=== PATIENT | female | born 1945 | race Caucasian/White ===

== ENCOUNTER 2023-07-03 12:46 | Outpatient (OUT) | payer MEDICARE, SELFPAY ==
--- NOTE | 2023-07-03 12:59 | US_ITS ---
[address] [address] Patient Name: BINDU COOPER MRN: [id number] date: 1945 Sex: F Assigned Patient Location: Current Patient Location: Accession/Order Number: [id number] Exam Date: 07/03/2023 13:00 Report Date: 07/04/2023 08:07 At the request of: HENRY AGUIALR Procedure: US carotid duplex BI EXAMINATION: US carotid duplex BI HISTORY: Carotid Stenosis Bilateral I65.23 COMPARISON: No relevant comparison available. TECHNIQUE: Duplex Doppler ultrasound analysis of carotid and vertebral arteries. . Bilateral carotid arterial duplex examination was performed using B-mode, color flow and spectral analysis. Carotid stenosis is reported according to validated velocity parameters, similar to NASCET criteria. FINDINGS: RIGHT CAROTID ARTERY: No visible stenosis or significant plaque. RIGHT VERTEBRAL: Antegrade flow. Subclavian: PSV: 101.2 cm/s EDV: 6.0 cm/s CCA: Prox: PSV: 51.2 cm/s EDV: 12.7 cm/s Mid: PSV: 50.1 cm/s EDV: 13.8 cm/s Distal: PSV: 33.9 cm/s EDV: 11.8 cm/s BULB: PSV: 33.2 cm/s EDV: 7.5 cm/s ICA: Prox: PSV: 56.7 cm/s EDV: 17.5 cm/s Mid: PSV: 74.7 cm/s EDV: 27.6 cm/s Distal: PSV: 72.9 cm/s EDV: 24.9 cm/s ECA: PSV: 66.8 cm/s EDV: 9.2 cm/s VERTEBRAL: PSV: 62.4 cm/s EDV: 16.2 cm/s ICA/CCA ratio: PSV: 2.2 EDV: 2.3 LEFT CAROTID ARTERY: Minimal atherosclerotic plaque within proximal and mid ICA; no significant stenosis. LEFT VERTEBRAL: Antegrade flow. Subclavian: PSV: 120.0 cm/s EDV: 11.6 cm/s CCA: Prox: PSV: 39.1 cm/s EDV: 12.1 cm/s Mid: PSV: 52.2 cm/s EDV: 15.6 cm/s Distal: PSV: 35.7 cm/s EDV: 11.2 cm/s BULB: PSV: 41.8 cm/s EDV: 12.1 cm/s ICA: Prox: PSV: 131.8 cm/s EDV: 26.8 cm/s Mid: PSV: 89.8 cm/s EDV: 26.8 cm/s Distal: PSV: 131.7 cm/s EDV: 36.5 cm/s ECA: PSV: 61.6 cm/s EDV: 8.4 cm/s VERTEBRAL: PSV: 56.4 cm/s EDV: 14.5 cm/s ICA/CCA ratio: PSV: 3.7 EDV: 2.4 US/US carotid duplex BI IMPRESSION: 1. 0-49% flow stenosis within the right and left carotid arteries. 2. Minimal atherosclerotic disease. Electronically authenticated by: PATY DE OLIVEIRA Date: 07/04/2023 08:07
--- NOTE | 2023-07-03 14:35 | CA_ITS ---
Patient Name: BINDU COOPER MR#: [id number] : 1945 Exam Date: 07/03/2023 Ordering Doctor: DR HENRY MOROCHO M.D. ECHOCARDIOGRAM REPORT PROCEDURE: CA ECHO DOPPLER COMPLETE INDICATIONS: CAD, stent, smoker, hypertension COMPARISON: None. DESCRIPTION: COMPLETE ECHOCARDIOGRAM Real-time transthoracic echocardiography with 2D, M-mode, spectral and color flow Doppler performed. QUALITY: Technical quality was good. 66 , 145# , BSA 1.71 m2 LEFT VENTRICLE: Normal chamber size. Mild concentric left ventricular hypertrophy. Normal systolic function. LV EF: Normal left ventricular ejection fraction, (55-60%). DIASTOLIC: Normal diastolic function. ATRIAL SEPTUM: Visually appears intact. LEFT ATRIUM: Normal chamber size. RIGHT ATRIUM: Normal chamber size. RIGHT VENTRICLE: Normal chamber size. Normal right ventricular systolic function. TRICUSPID VALVE: Normal mobility and thickness. No stenosis with mild regurgitation. No evidence of pulmonary hypertension. RVSP 25 mmHg MITRAL VALVE: Normal mobility and thickness. No evidence of mitral valve stenosis. Mild mitral annular calcification. No mitral regurgitation. AORTIC VALVE: Normal trileaflet appearance. Mildly calcified aortic valve. Normal leaflet mobility. No evidence of aortic valve stenosis. No aortic regurgitation. AORTIC ROOT: Normal diameter and appearance. PULMONIC VALVE: Normal thickness and mobility. No stenosis. Trivial regurgitation. PERICARDIUM: No evidence of pericardial effusion. IVC: Collapses with inspirations. PLEURA: CONCLUSION: 1. Mild concentric left ventricular hypertrophy with normal systolic function. LVEF is 55 to 60%. 2. Normal right ventricular size and systolic function. 3. Normal diastolic function. 4. No significant valvular dysfunction. 5. Normal right-sided pressures. Adult Echocardiography Procedure Report Left Ventricle LVEDD (3.7 - 5.6 cm): 4.14 cm LVESD (2.2 - 4.0 cm): 3.21 cm LVIVS thickness (0.6 - 1.2 cm): 1.14 cm LVPW thickness (0.5 - 1.0 cm): 1.18 cm LVOT Max Gradient: 2 mm[Hg] Peak Velocity (LVOT): 77.50 cm/s Mean Velocity (LVOT): 52.70 cm/s LVOT Diameter 2.20 cm Left Ventricular Ejection Fraction: 55-60 % Left Atrium LA Volume Index (2D A2C): 02721 mm3 Left Atrium Systolic Dimension: 3.10 cm Mitral Valve MV E to A Ratio: 0.90 Mitral Valve A-Wave Peak Velocity: 69.10 cm/s Mitral Valve E-Wave Peak Velocity: 59.20 cm/s Right Ventricle Aorta AO Root Diam: 3.30 cm Aortic Valve AoV Area (Peak Jose): 2.20 cm2 AoV Area (VTI): 2.48 cm2 Peak Velocity(Antegrade Flow): 134.00 cm/s Peak Gradient(Antegrade Flow): 7 mm[Hg] Mean Velocity(Antegrade Flow): 84.30 cm/s Mean Gradient(Antegrade Flow): 3 mm[Hg] Velocity Time Integral: 30.70 cm Tricuspid Valve Peak Velocity: 44.90 cm/s Pulmonic Valve Peak Velocity: 70.80 cm/s, 79.50 cm/s Peak Gradient: 2 mm[Hg] Right Atrium Dictated by: Henry Morocho M.D. on 07/03/2023 at 20:43 Approved by: Henry Morocho M.D. on 07/03/2023 at 20:46
== END 2023-07-03 12:47 | disposition home or self-care (01) ==
LOC: US 12:50
PROVIDERS: Visit Provider Internal Medicine Interventional Cardiology
DX: I25.10 Atherosclerotic heart disease of native coronary artery without angina pectoris (principal); Z95.5 Presence of coronary angioplasty implant and graft; I65.23 Occlusion and stenosis of bilateral carotid arteries
CPT/HCPCS: 93306; 93880